=== PATIENT | female | born 1965 | race Asian ===

== ENCOUNTER 2024-12-27 18:08 | Emergency (ER) | payer OTHER ==
--- OUTSIDE RECORDS SUMMARY | 2024-12-27 18:12 | XMS REPORT | Continuity of Care Document ---
Author Name Unknown Address [address] [place] [address]. [address] [place] [address] [facility] [place] Address [address] [facility]. [address] [place] [address] Care Team Providers Care Classified Ad Clerk Name Role Phone Rosanna GIBSON, Bisi Primary Care Physic shalom [phone] Medications Ordered Medication Name Filled Medication Name Start Date Stop Date Current Medication? Ordering Clinician Indication Dosage Frequency Signature (SIG) Comments Components Source losartan 50 mg tablet 2023-10 00:00: 00 Yes 1mg Franc Garay atorvastati n 20 mg tablet 2023-10 00:00: 00 Yes 1mg Franckelsey Garay famotidine 20 mg tablet 2023-10 00:00: 00 Yes 1mg Franc Garay gabapentin 300 mg capsule 2023-10 00:00: 00 Yes 1mg Franc Garay losartan 50 mg tablet 02-20 00:00: 00 Yes 1mg Franckelsey Garay atorvastati n 20 mg tablet 02-20 00:00: 00 Yes 1mg Franc Garay famotidine 20 mg tablet 02-20 00:00: 00 Yes 1mg Franc Maria Eugenia Garay gabapentin 300 mg capsule 02-20 00:00: 00 Yes 1mg Franc Garay TAKE 1 TABLET DAILY. 2022-10 00:00: 00 02-25 00:00 :00 No 15 Franc Garay TAKE 1 TABLET AT BEDTIME. 06-01 00:00: 00 02-25 00:00 :00 No 20 Franckelsey Garay TAKE 1 TABLET DAILY. 2023-0 8-10 00:00: 00 02-25 00:00 :00 No 50 Franc Garay TAKE 1 TABLET DAILY. 8- 00:00: 00 02-25 00:00 :00 No 15 Franc Garay TAKE 1 TABLET DAILY. 8- 00:00: 00 02-25 00:00 :00 No 20 Franc Garay TAKE 1 TABLET DAILY. 427 00:00: 00 02-25 00:00 :00 No 20 Franc Garay TAKE 1 TABLET DAILY. 4- 00:00: 00 02-25 00:00 :00 No 50 Franc Garay TAKE 1 TABLET AT BEDTIME. 4 00:00: 00 02-25 00:00 :00 No 20 Franc Garay TAKE 1 TABLET DAILY. 2021-10 1 00:00: 00 02-25 00:00 :00 No 50 Franc Garay Dose Unknown - 00:00: 00 No Dose Unknown 05-13 00:00: 00 No Dose Unknown 05-13 00:00: 00 Yes Franc Garay Dose Unknown 05-13 00:00: 00 Yes Franc Garay Dose Unknown 05-05 00:00: 00 No Dose Unknown 05-05 00:00: 00 No Dose Unknown 05-05 00:00: 00 No diclofenac potassium 50 mg tablet - 00:00: 00 Yes 1mg Franc Garay pantoprazol e 40 mg tablet,sofya yed release 05-05 00:00: 00 Yes 1mg Franc Garay Dose Unknown -14 00:00: 00 Yes Franc Garay ibuprofen 600 mg tablet - 00:00: 00 No 1mg Dose Unknown - 00:00: 00 No ibuprofen 600 mg tablet 4- 00:00: 00 Yes 1mg Franc Garay Dose Unknown 4- 00:00: 00 Yes Franc Garay atorvastati n 20 mg tablet 0 4-20 00:00: 00 No 1mg diclofenac potassium 50 mg tablet 0 4-20 00:00: 00 No 1mg Remeron 15 mg tablet 0 4-20 00:00: 00 No 1mg pantoprazol e 40 mg tablet,sofya yed release 0 4-20 00:00: 00 No 1mg atorvastati n 20 mg tablet 0 4-20 00:00: 00 Yes 1mg Franc Garay diclofenac potassium 50 mg tablet 0 4-20 00:00: 00 Yes 1mg Franc Garay Remeron 15 mg tablet 0 4-20 00:00: 00 Yes 1mg Franc Garay pantoprazol e 40 mg tablet,sofya yed release 0 4-20 00:00: 00 Yes 1mg Franc Garay ibuprofen 600 mg tablet 0 2-15 00:00: 00 No 1mg ibuprofen 600 mg tablet 0 2-15 00:00: 00 Yes 1mg Franc Garay losartan 25 mg tablet 0 2-08 00:00: 00 No 1mg losartan 25 mg tablet 0 2-08 00:00: 00 Yes 1mg Franc Garay Remeron 15 mg tablet 0 2-02 00:00: 00 No 1mg Remeron 15 mg tablet 0 2-02 00:00: 00 Yes 1mg Franc Garay diclofenac 3 % topical gel 0 1-20 00:00: 00 No 1% diclofenac 3 % topical gel 0 1-20 00:00: 00 Yes 1% Franc Garay pantoprazol e 40 mg tablet,sofya yed release 0 1-18 00:00: 00 No 1mg duloxetine 40 mg capsule,del ayed release 2021-0 1-18 00:00: 00 No 1mg pantoprazol e 40 mg tablet,sofya yed release 2021-0 1-18 00:00: 00 Yes 1mg Franc Garay duloxetine 40 mg capsule,del ayed release 2021-0 1-18 00:00: 00 Yes 1mg Franc Garay losartan 25 mg tablet 2020-0 7-09 00:00: 00 No 1mg atorvastati n 20 mg tablet 04-30 00:00: 00 No 1mg ibuprofen 600 mg tablet 04-30 00:00: 00 No 1mg diclofenac sodium 75 mg tablet,sofya yed release 04-30 00:00: 00 No 1mg Dose Unknown 04-30 00:00: 00 No losartan 25 mg tablet 04-30 00:00: 00 Yes 1mg Franc Garay atorvastati n 20 mg tablet 04-30 00:00: 00 Yes 1mg Franc Garay ibuprofen 600 mg tablet 04-30 00:00: 00 Yes 1mg Franc Garay diclofenac sodium 75 mg tablet,sofya yed release 04-30 00:00: 00 Yes 1mg Franc Garay Dose Unknown 04-30 00:00: 00 Yes Franc Garay ibuprofen 600 mg tablet 04-20 00:00: 00 No 1mg ibuprofen 600 mg tablet 04-20 00:00: 00 Yes 1mg Franc Garay ibuprofen 600 mg tablet 03-18 00:00: 00 No 1mg ibuprofen 600 mg tablet 03-18 00:00: 00 Yes 1mg Franc Garay ibuprofen 600 mg tablet 02-11 00:00: 00 No 1mg ibuprofen 600 mg tablet 02-11 00:00: 00 Yes 1mg Franc Garay atorvastati n 20 mg tablet 01-26 00:00: 00 No 1mg losartan 25 mg tablet 01-26 00:00: 00 No 1mg diclofenac sodium 75 mg tablet,sofya yed release 01-26 00:00: 00 No 1mg famotidine 20 mg tablet 01-26 00:00: 00 No 1mg atorvastati n 20 mg tablet 01-26 00:00: 00 Yes 1mg Franc Garay losartan 25 mg tablet 01-26 00:00: 00 Yes 1mg Franc Garay diclofenac sodium 75 mg tablet,sofya yed release 01-26 00:00: 00 Yes 1mg Franc Garay famotidine 20 mg tablet 0 4-06 00:00: 00 Yes 1mg Franc Garay ibuprofen 600 mg tablet 0 1-20 00:00: 00 No 1mg ibuprofen 600 mg tablet 1-20 00:00: 00 Yes 1mg Franc Garay atorvastati n 20 mg tablet 2019-10 2 00:00: 00 Yes 1mg Franc Garay diclofenac sodium 75 mg tablet,sofya yed release 2019-10 2 00:00: 00 Yes 1mg Franc Garay famotidine 20 mg tablet 2019-10 00:00: 00 Yes 1mg Franc Garay atorvastati n 20 mg tablet 2019-10 00:00: 00 No 1mg diclofenac sodium 75 mg tablet,sofya yed release 2019-10 00:00: 00 No 1mg famotidine 20 mg tablet 2019-10 00:00: 00 No 1mg ibuprofen 600 mg tablet 2019-10 0- 00:00: 00 Yes 1mg Franc Garay ibuprofen 600 mg tablet 2019-10 0 00:00: 00 No 1mg atorvastati n 20 mg tablet 0 817 00:00: 00 Yes 1mg Franc Garay diclofenac sodium 75 mg tablet,sofya yed release 8-17 00:00: 00 Yes 1mg Franc Garay famotidine 20 mg tablet 0 8-17 00:00: 00 Yes 1mg Franc Garay atorvastati n 20 mg tablet 8-17 00:00: 00 No 1mg diclofenac sodium 75 mg tablet,sofya yed release 0 817 00:00: 00 No 1mg famotidine 20 mg tablet 0 8-17 00:00: 00 No 1mg diclofenac sodium 75 mg tablet,sofya yed release 0 7-22 00:00: 00 Yes 1mg Franc Garay diclofenac sodium 75 mg tablet,sofya yed release 0 7-22 00:00: 00 No 1mg atorvastati n 20 mg tablet 0 4-14 00:00: 00 Yes 1mg Franc Garay diclofenac sodium 75 mg tablet,sofya yed release 0 4-14 00:00: 00 Yes 1mg Franc Garay famotidine 20 mg tablet 02-03 00:00: 00 Yes 1mg Franc Garay atorvastati n 20 mg tablet 02-03 00:00: 00 No 1mg diclofenac sodium 75 mg tablet,sofya yed release 02-03 00:00: 00 No 1mg famotidine 20 mg tablet 02-03 00:00: 00 No 1mg atorvastati n 20 mg tablet 01-19 00:00: 00 Yes 1mg Franc Garay tramadol 50 mg tablet 01-19 00:00: 00 Yes 1mg Franc Garay ibuprofen 600 mg tablet 01-19 00:00: 00 Yes 1mg Franc Garay atorvastati n 20 mg tablet 01-19 00:00: 00 No 1mg tramadol 50 mg tablet 01-19 00:00: 00 No 1mg ibuprofen 600 mg tablet 01-19 00:00: 00 No 1mg Immunizations Ordered Immunization Name Filled Immunization Name Date Status Comments Source varicella varicella 2021-02-26 00:00:00 Completed Franc Garay varicella 2021-02-26 00:00:00 Completed Tdap Tdap 2021-02-12 00:00:00 Completed Franc Garay Tdap 2021-02-12 00:00:00 Completed Pfizer COVID-19 Vaccine Pfizer COVID-19 Vaccine 2020-12-16 00:00:00 Completed Franc Maria Eugenia Jarrod Pfizer COVID-19 Vaccine Pfizer COVID-19 Vaccine 2020-10-28 00:00:00 Completed Franc Maria Eugenia Jarrod Vital Signs Vital Name Observation Time Observation Value Comments S ouralbina BP Systolic 2024-08-07 16:58:00 150 mm[Hg] Terrence Garay BP Diastolic 2024-08-07 16:58:00 80 mm[Hg] Otilio Garay Weight Measured 2024-08-07 16:58:00 119.00 pounds Franc Garay Height Measured 2024-08-07 16:58:00 57.20 inches Franc Maria Eugenia Jarrod Body Temperature 2024-08-07 16:58:00 97.30 degrees Franc Garay Heart Rate 2024-08-07 16:58:00 71.00 /min Cari en F Jarrod Respiratory Rate 2024-08-07 16:58:00 Franc F Jarrod BP Systolic 2024-02-21 16:32:00 156 mm[Hg] Step hen F Jarrod BP Diastolic 2024-02-21 16:32:00 87 mm[Hg] Otilio phen F Jarrod Weight Measured 2024-02-21 16:32:00 124.40 pounds Franc F Jarrod Height Measured 2024-02-21 16:32:00 57.20 inches Franc F Jarrod Body Temperature 2024-02-21 16:32:00 97.70 degrees Franc F Jarrod Heart Rate 2024-02-21 16:32:00 68.00 /min Cari en F Jarrod Respiratory Rate 2024-02-21 16:32:00 Franc F Jarrod BP Systolic 2023-10-04 15:34:00 165 mm[Hg] Step hen F Jarrod BP Diastolic 2023-10-04 15:34:00 92 mm[Hg] Otilio phen F Jarrod Weight Measured 2023-10-04 15:34:00 119.60 pounds Franc F Jarrod Height Measured 2023-10-04 15:34:00 57.20 inches Franc F Jarrod Body Temperature 2023-10-04 15:34:00 98.30 degrees Franc F Jarrod Heart Rate 2023-10-04 15:34:00 74.00 /min Cari en F Jarrod Respiratory Rate 2023-10-04 15:34:00 Franc F Jarrod BP Systolic 2023-05-31 15:04:00 150 mm[Hg] Step hen F Jarrod BP Diastolic 2023-05-31 15:04:00 90 mm[Hg] Otilio phen F Jarrod Weight Measured 2023-05-31 15:04:00 119.80 pounds Franc F Jarrod Height Measured 2023-05-31 15:04:00 57.20 inches Franc F Jarrod Body Temperature 2023-05-31 15:04:00 98.20 degrees Franc F Jarrod Heart Rate 2023-05-31 15:04:00 77.00 /min Cari en F Jarrod Respiratory Rate 2023-05-31 15:04:00 Franc F Jarrod BP Systolic 2023-01-30 15:04:00 156 mm[Hg] Step hen F Jarrod BP Diastolic 2023-01-30 15:04:00 84 mm[Hg] Otilio phen F Jarrod Weight Measured 2023-01-30 15:04:00 122.80 pounds Franc F Jarrod Height Measured 2023-01-30 15:04:00 57.20 inches Franc F Jarrod Body Temperature 2023-01-30 15:04:00 98.00 degrees Franc F Jarrod Heart Rate 2023-01-30 15:04:00 81.00 /min Cari en F Jarrod Respiratory Rate 2023-01-30 15:04:00 Franc F Jarrod BP Systolic 2022-08-17 15:06:00 167 mm[Hg] Step hen F Jarrod BP Diastolic 2022-08-17 15:06:00 98 mm[Hg] Otilio phen F Jarrod Weight Measured 2022-08-17 15:06:00 124.40 pounds Franc F Jarrod Height Measured 2022-08-17 15:06:00 57.20 inches Franc F Jarrod Body Temperature 2022-08-17 15:06:00 98.30 degrees Franc F Jarrod Heart Rate 2022-08-17 15:06:00 89.00 /min Cari en F Jarrod Respiratory Rate 2022-08-17 15:06:00 Franc F Jarrod BP Systolic 2022-08-03 18:00:00 173 mm[Hg] Step hen F Jarrod BP Diastolic 2022-08-03 18:00:00 92 mm[Hg] Otilio phen F Jarrod Weight Measured 2022-08-03 18:00:00 124.60 pounds Franc F Jarrod Height Measured 2022-08-03 18:00:00 57.20 inches Franc F Jarrod Body Temperature 2022-08-03 18:00:00 98.70 degrees Franc F Jarrod Heart Rate 2022-08-03 18:00:00 75.00 /min Cari en F Jarrod Respiratory Rate 2022-08-03 18:00:00 Franc F Jarrod BP Systolic 2022-02-09 16:43:00 147 mm[Hg] Step hen F Jarrod BP Diastolic 2022-02-09 16:43:00 82 mm[Hg] Otilio phen F Jarrod Weight Measured 2022-02-09 16:43:00 118.00 pounds Franc F Jarrod Height Measured 2022-02-09 16:43:00 57.20 inches Franc F Jarrod Body Temperature 2022-02-09 16:43:00 97.40 degrees Franc F Jarrod Heart Rate 2022-02-09 16:43:00 76.00 /min Cari en F Jarrod Respiratory Rate 2022-02-09 16:43:00 Franc F Jarrod BP Systolic 2021-11-09 17:39:00 134 mm[Hg] Step hen F Jarrod BP Diastolic 2021-11-09 17:39:00 72 mm[Hg] Otilio phen F Jarrod Weight Measured 2021-11-09 17:39:00 120.00 pounds Franc F Jarrod Height Measured 2021-11-09 17:39:00 57.20 inches Franc F Jarrod Body Temperature 2021-11-09 17:39:00 97.40 degrees Franc F Jarrod Heart Rate 2021-11-09 17:39:00 85.00 /min Cari en F Jarrod Respiratory Rate 2021-11-09 17:39:00 Franc F Jarrod BP Systolic 2021-04-27 15:07:00 128 mm[Hg] Step hen F Jarrod BP Diastolic 2021-04-27 15:07:00 80 mm[Hg] Otilio phen F Jarrod Weight Measured 2021-04-27 15:07:00 118.20 pounds Franc F Jarrod Height Measured 2021-04-27 15:07:00 57.20 inches Franc F Jarrod Body Temperature 2021-04-27 15:07:00 97.50 degrees Franc F Jarrod Heart Rate 2021-04-27 15:07:00 84.00 /min Cari en F Jarrod Respiratory Rate 2021-04-27 15:07:00 Franc F Jarrod BP Systolic 2021-02-17 17:43:00 161 mm[Hg] Step hen F Jarrod BP Diastolic 2021-02-17 17:43:00 99 mm[Hg] Otilio phen F Jarrod Weight Measured 2021-02-17 17:43:00 118.00 pounds Franc F Jarrod Height Measured 2021-02-17 17:43:00 59.00 inches Franc F Jarrod Body Temperature 2021-02-17 17:43:00 98.10 degrees Franc F Jarrod Heart Rate 2021-02-17 17:43:00 89.00 /min Cari en F Jarrod Respiratory Rate 2021-02-17 17:43:00 Franc Garay BP Systolic 2021-02-12 09:09:00 164 mm[Hg] BP Diastolic 2021-02-12 09:09:00 79 mm[Hg] Weight Measured 2021-02-12 09:09:00 117.40 pounds Height Measured 2021-02-12 09:09:00 59.00 inches Body Temperature 2021-02-12 09:09:00 99.00 degrees Heart Rate 2021-02-12 09:09:00 86.00 /min Respiratory Rate 2021-02-12 09:09:00 17.00 /min BP Systolic 2021-02-11 14:30:00 134 mm[Hg] BP Diastolic 2021-02-11 14:30:00 71 mm[Hg] Weight Measured 2021-02-11 14:30:00 118.00 pounds Height Measured 2021-02-11 14:30:00 59.00 inches Body Temperature 2021-02-11 14:30:00 98.00 degrees Heart Rate 2021-02-11 14:30:00 94.00 /min Respiratory Rate 2021-02-11 14:30:00 17.00 /min BP Systolic 2021-01-26 16:52:00 149 mm[Hg] BP Diastolic 2021-01-26 16:52:00 84 mm[Hg] Weight Measured 2021-01-26 16:52:00 117.20 pounds Height Measured 2021-01-26 16:52:00 59.00 inches Body Temperature 2021-01-26 16:52:00 98.40 degrees Heart Rate 2021-01-26 16:52:00 98.00 /min Respiratory Rate 2021-01-26 16:52:00 BP Systolic 2020-09-14 10:03:00 162 mm[Hg] BP Diastolic 2020-09-14 10:03:00 91 mm[Hg] Weight Measured 2020-09-14 10:03:00 116.40 pounds Height Measured 2020-09-14 10:03:00 59.00 inches Body Temperature 2020-09-14 10:03:00 97.60 degrees Heart Rate 2020-09-14 10:03:00 74.00 /min Respiratory Rate 2020-09-14 10:03:00 Plan of Care Planned Activity Planned Date Details Comments Source Goal Plan of Care Note [code = 93644-7] Goal Plan of Care Note [code = 68702-8] Goal Plan of Care Note [code = 34786-9] Goal Plan of Care Note [code = 81174-6] Goal Plan of Care Note [code = 08135-3] Goal Plan of Care Note [code = 04086-5] Goal Plan of Care Note [code = 35063-8] Goal Plan of Care Note [code = 25212-6] Goal Plan of Care Note [code = 79188-5] Goal Plan of Care Note [code = 70040-2] Goal Plan of Care Note [code = 01585-7] Goal Plan of Care Note [code = 85510-0] Goal Plan of Care Note [code = 77051-2] Goal Plan of Care Note [code = 93655-3] Goal Plan of Care Note [code = 55055-5] Goal Plan of Care Note [code = 27369-4] Goal Plan of Care Note [code = 08239-6] Encounters Start Date/Time End Date/Time Encounter Type Admission Type Attending [facility] Facility Care Department Encounter ID Source 2024-08-19 15:58:12 2024-08-19 15:58:12 Outpatient [facility] [id number] Franc Del Cid Jarrod 2024-08-07 16:57:27 2024-08-07 16:57:27 Outpatient [facility] [id number] Franc Del Cid Jarrod 2024-08-07 00:00:00 2024-08-07 00:00:00 Outpatient Visit [facility] [id number] Franc Del Cid Jarrod 2024-02-21 16:21:00 2024-02-21 16:21:00 Outpatient [facility] [id number] Franc Del Cid Jarrod 2024-02-21 00:00:00 2024-02-21 00:00:00 Outpatient Visit [facility] [id number] Franc Del Cid Jarrod 2023-10-07 11:49:45 2023-10-07 11:49:45 Outpatient [facility] [id number] Franc Garay 2023-10-04 15:30:25 2023-10-04 15:30:25 Outpatient [facility] [id number] Franc Garay 2023-05-31 15:03:31 2023-05-31 15:03:31 Outpatient [facility] [id number] Franc Garay 2023-01-31 08:44:56 2023-01-31 08:44:56 Outpatient [facility] [id number] Franc Garay 2023-01-30 15:00:54 2023-01-30 15:00:54 Outpatient [facility]FA[facility] [id number] Franc Garay 2022-08-17 15:00:15 2022-08-17 15:00:15 Outpatient [facility] [id number] Franc Garay 2022-08-03 17:53:05 2022-08-03 17:53:05 Outpatient [facility] [id number] Franc Garay 2022-08-03 00:00:00 2022-08-03 00:00:00 Outpatient Visit [id number] Results Test Description Test Time Test Comments Results Result Co mments Source COMPREHENSIVE METABOLIC [id number] 04:01:26* Test Item Value Reference Range Interpretation Comme nts GLUCOSE (test code = 2217) 113 MG/DL 70-99 H BUN (test code = 2208) 25 MG/DL 8-23 H CREATININE (test code = 2214) 0.66 MG/DL 0.60-1.30 eGFR (2020 CKD-EPI) (test code = 46219) 100 ML/MIN/1.73 >60 CALC BUN/CREAT (test code = 2235) 38 RATIO 6-28 H SODIUM (test code = 2231) 144 MEQ/L 133-146 POTASSIUM (test code = 2228) 4.0 MEQ/L 3.5-5.4 CHLORIDE (test code = 2215) 106 MEQ/L 95-107 CARBON DIOXIDE (test code = 2206) 25 MEQ/L 19-31 CALCIUM (test code = 2208) 10.0 MG/DL 8.5-10.5 PROTEIN, TOTAL (test code = 222) 7.2 G/DL 6.1-8.3 ALBUMIN (test code = 2201) 4.6 G/DL 3.5-5.2 CALC GLOBULIN (test code = 2240) 2.6 G/DL 1.9-3.7 CALC A/G RATIO (test code = 223) 1.8 RATIO 1.0-2.6 BILIRUBIN, TOTAL (test code = 2206) 0.2 MG/DL <=1.2 ALKALINE PHOSPHATASE (test code = 2203) 127 U/L 40-136 AST (test code = 2217) 22 U/L 9-40 ALT (test code = 221) 9 U/L 5-40 UNLESS OTHERWISE INDICATED, ALL TESTING PERFORMED AT [facility] [address] [place] [address] INSPECTOR RAD[employer] AND ELECTRONICS: DOMINIQUE GALDAMEZ M.D. [place] NUMBER [id number] [facility] [place]. [id number] HEMOGLOBIN [id number] 03:24:42* Test Item Value Reference Range Interpretation Comme nts HEMOGLOBIN A1c (test code = 30466) 6.2 % 4.2-5.6 H [employer] GUIDELINES FOR HGB A1C: PREDIABETES/INCREASED RISK . . . . . . . 5.7-6.4% DIAGNOSIS OF DIABETES . . . . . . . . . >=6.5% WITH CONFIRMATION OR APPROPRIATE SYMPTOMS NOTE: ASSAY MAY BE AFFECTED BY HEMOGLOBINOPATHIES (SICKLE CELL ANEMIA, S-C DISEASE, OTHERS) OR ARTIFICIALLY LOWERED BY DECREASED RED CELL SURVIVAL (HEMOLYTIC ANEMIAS, BLOOD LOSS, ETC.). CONSIDER ALTERNATE TESTING OR LABORATORY CONSULTATION. LIPID [id number] 01:50:14* Test Item Value Reference Range Interpretation Comme nts CHOLESTEROL (test code = 2210) 181 MG/DL <200 TRIGLYCERIDES (test code = 223) 175 MG/DL <150 H HDL CHOLESTEROL (test code = 2219) 57 MG/DL >39 CALC LDL CHOL (test code = 2236) 97 MG/DL <100 NOTE: CALCULATED LDL IS BASED ON BRODERICK-SOTO METHOD WHICHINCLUDES ADJUSTABLE TRIGLYCERIDE:VLDL CHOLESTEROL RATIO.THIS FACTOR VARIES BY MEASURED TRIGLYCERIDE AND NON-HDLCHOLESTEROL CONCENTRATIONS WITH INCREASED CALCULATED LDL SEENIN HIGHER TRIGLYCERIDE OR LOWER NON-HDL SPECIMENS. FOR MOREINFORMATION, SEE CLIENT ANNOUNCEMENT AT [email or web address] RISK RATIO LDL/HDL (test code = 2237) 1.70 RATIO <3.22 COMPREHENSIVE METABOLIC [id number] 01:50:14* Test Item Value Reference Range Interpretation Comme nts GLUCOSE (test code = 2216) 117 MG/DL 70-99 H BUN (test code = 2207) 18 MG/DL 6-20 CREATININE (test code = 2213) 0.57 MG/DL 0.60-1.30 L eGFR (2020 CKD-EPI) (test code = 87684) 105 ML/MIN/1.73 >60 CALC BUN/CREAT (test code = 5) 32 RATIO 6-28 H SODIUM (test code = 2230) 143 MEQ/L 133-146 POTASSIUM (test code = 2227) 4.0 MEQ/L 3.5-5.4 CHLORIDE (test code = 2214) 105 MEQ/L 95-107 CARBON DIOXIDE (test code = 2206) 25 MEQ/L 19-31 CALCIUM (test code = 2209) 9.6 MG/DL 8.5-10.5 PROTEIN, TOTAL (test code = 222) 7.1 G/DL 6.1-8.3 ALBUMIN (test code = 2201) 4.5 G/DL 3.5-5.2 CALC GLOBULIN (test code = 2240) 2.6 G/DL 1.9-3.7 CALC A/G RATIO (test code = 2233) 1.7 RATIO 1.0-2.6 BILIRUBIN, TOTAL (test code = 2206) <0.2 MG/DL <=1.2 ALKALINE PHOSPHATASE (test code = 220) 122 U/L 40-136 AST (test code = 2218) 18 U/L 9-40 ALT (test code = 2219) 7 U/L 5-40 UNLESS OTHERWISE INDICATED, ALL TESTING PERFORMED AT [facility] [address] [place] [id number] [employer]: DOMINIQUE GALDAMEZ M.D. CLIA NUMBER [id number] [facility] [place]. [id number] LIPID [id number] 00:00:00* Test Item Value Reference Range Interpretation Comme nts CHOLESTEROL (test code = 2210) 181 MG/DL TRIGLYCERIDES (test code = 2232) 175 MG/DL HDL CHOLESTEROL (test code = 2220) 57 MG/DL CALC LDL CHOL (test code = 2237) 97 MG/DL RISK RATIO LDL/HDL (test cod e = 2238) 1.70 RATIO Franc GarayCOMPREHENSIVE METABOLIC [id number] 00:00:00* Test Item Value Reference Range Interpretation Comme nts GLUCOSE (test code = 2217) 117 MG/DL BUN (test code = 2208) 18 MG/DL CREATININE (test code = 2214) 0.57 MG/DL eGFR (2020 CKD-EPI) (test code = 35921) 105 ML/MIN/1.73 CALC BUN/CREAT (test code = 2235) 32 RATIO SODIUM (test code = 2231) 143 MEQ/L POTASSIUM (test code = 2228) 4.0 MEQ/L CHLORIDE (test code = 2215) 105 MEQ/L CARBON DIOXIDE (test code = 2206) 25 MEQ/L CALCIUM (test code = 2209) 9.6 MG/DL PROTEIN, TOTAL (test code = 2229) 7.1 G/DL ALBUMIN (test code = 2201) 4.5 G/DL CALC GLOBULIN (test code = 2240) 2.6 G/DL CALC A/G RATIO (test code = 2234) 1.7 RATIO BILIRUBIN, TOTAL (test code = 2207) <0.2 MG/DL ALKALINE PHOSPHATASE (test code = 2204) 122 U/L AST (test code = 2218) 18 U/L ALT (test code = 2219) 7 U/L Franc Del Cid AustinLIPID [id number] 00:00:00* Test Item Value Reference Range Interpretation Comme nts CHOLESTEROL (test code = 2210) 181 MG/DL TRIGLYCERIDES (test code = 2232) 175 MG/DL HDL CHOLESTEROL (test code = 2220) 57 MG/DL CALC LDL CHOL (test code = 2237) 97 MG/DL RISK RATIO LDL/HDL (test cod e = 2238) 1.70 RATIO Franc GarayCOMPREHENSIVE METABOLIC [id number] 00:00:00* Test Item Value Reference Range Interpretation Comme nts GLUCOSE (test code = 2217) 117 MG/DL BUN (test code = 2208) 18 MG/DL CREATININE (test code = 2214) 0.57 MG/DL eGFR (2020 CKD-EPI) (test code = 99674) 105 ML/MIN/1.73 CALC BUN/CREAT (test code = 2235) 32 RATIO SODIUM (test code = 2231) 143 MEQ/L POTASSIUM (test code = 2228) 4.0 MEQ/L CHLORIDE (test code = 2215) 105 MEQ/L CARBON DIOXIDE (test code = 2206) 25 MEQ/L CALCIUM (test code = 2209) 9.6 MG/DL PROTEIN, TOTAL (test code = 222) 7.1 G/DL ALBUMIN (test code = 2201) 4.5 G/DL CALC GLOBULIN (test code = 2240) 2.6 G/DL CALC A/G RATIO (test code = 2234) 1.7 RATIO BILIRUBIN, TOTAL (test code = 2206) <0.2 MG/DL ALKALINE PHOSPHATASE (test code = 4) 122 U/L AST (test code = 2217) 18 U/L ALT (test code = 2219) 7 U/L [facility] [place]MO[place] [id number] 02:31:54* Test Item Value Reference Range Interpretation Comme [facility] HEMOGLOBIN A1c (test code = 19387) 6.0 % 4.2-5.6 H [employer] GUIDELINES FOR HGB A1C: PREDIABETES/INCREASED RISK . . . . . . . 5.7-6.4% DIAGNOSIS OF DIABETES . . . . . . . . . >=6.5% WITH CONFIRMATION OR APPROPRIATE SYMPTOMS NOTE: ASSAY MAY BE AFFECTED BY HEMOGLOBINOPATHIES (SICKLE CELL ANEMIA, S-C DISEASE, OTHERS) OR ARTIFICIALLY LOWERED BY DECREASED RED CELL SURVIVAL (HEMOLYTIC ANEMIAS, BLOOD LOSS, ETC.). CONSIDER ALTERNATE TESTING OR LABORATORY CONSULTATION. HEMOGLOBIN [id number] 00:00:00* Test Item Value Reference Range Interpretation Comme [facility] HEMOGLOBIN A1c (test code = 71185) 6.0 % [facility] [place] [id number] 00:00:00* Test Item Value Reference Range Interpretation Comme [facility] HEMOGLOBIN A1c (test code = 24191) 6.0 % Franc GarayCOMPREHENSIVE METABOLIC [id number] 06:15:22* Test Item Value Reference Range Interpretation Comme nts GLUCOSE (test code = 2216) 118 MG/DL 70-99 H BUN (test code = 2207) 14 MG/DL 6-20 CREATININE (test code = 2213) 0.58 MG/DL 0.60-1.30 L eGFR (2020 CKD-EPI) (test code = 13074) 105 ML/MIN/1.73 >60 CALC BUN/CREAT (test code = 2234) 24 RATIO 6-28 SODIUM (test code = 2230) 145 MEQ/L 133-146 POTASSIUM (test code = 2227) 4.2 MEQ/L 3.5-5.4 CHLORIDE (test code = 2214) 106 MEQ/L 95-107 CARBON DIOXIDE (test code = 2205) 27 MEQ/L 19-31 CALCIUM (test code = 2208) 10.1 MG/DL 8.5-10.5 PROTEIN, TOTAL (test code = 2228) 7.2 G/DL 6.1-8.3 ALBUMIN (test code = 2200) 4.7 G/DL 3.5-5.2 CALC GLOBULIN (test code = 2239) 2.5 G/DL 1.9-3.7 CALC A/G RATIO (test code = 2233) 1.9 RATIO 1.0-2.6 BILIRUBIN, TOTAL (test code = 2206) 0.4 MG/DL See_Comment [Automated me ssage] The system which generated this result transmitted reference range: <=1.2. The reference range was not used to interpret this result as normal/abnormal. ALKALINE PHOSPHATASE (test code = 2203) 139 U/L 40-136 H AST (test code = 2217) 22 U/L 9-40 ALT (test code = 221) 10 U/L 5-40 LIPID [id number] 06:15:22* Test Item Value Reference Range Interpretation Comme nts CHOLESTEROL (test code = 0) 217 MG/DL <200 H TRIGLYCERIDES (test code = 2232) 124 MG/DL <150 HDL CHOLESTEROL (test code = 2220) 63 MG/DL >39 CALC LDL CHOL (test code = 2236) 131 MG/DL <100 H NOTE: CALCULATED LDL IS BASED ON BRODERICK-SOTO METHOD WHICHINCLUDES ADJUSTABLE TRIGLYCERIDE:VLDL CHOLESTEROL RATIO.THIS FACTOR VARIES BY MEASURED TRIGLYCERIDE AND NON-HDLCHOLESTEROL CONCENTRATIONS WITH INCREASED CALCULATED LDL SEENIN HIGHER TRIGLYCERIDE OR LOWER NON-HDL SPECIMENS. FOR MOREINFORMATION, SEE CLIENT ANNOUNCEMENT AT [email or web address] RATIO LDL/HDL (test code = 2238) 2.08 RATIO <3.22 [facility] has i mportant pathology staff changes effective 12/21/2022. New pathology staff will provide uninterrupted, excellent patient care and clinical consultation. See URL: [email or web address]. UNLESS OTHERWISE INDICATED, ALL TESTING PERFORMED AT [facility] [address] [place] [address] INSPECTOR RADAR AND ELECTRONICS: DOMINIQUE GALDAMEZ M.D. [facility] NUMBER [id number] [facility] [place]. [id number] HEMOGLOBIN [id number] 04:11:53* Test Item Value Reference Range Interpretation Comme [facility] HEMOGLOBIN A1c (test code = 99083) 6.2 % 4.2-5.6 H [employer] GUIDELINES FOR HGB A1C: PREDIABETES/INCREASED RISK . . . . . . . 5.7-6.4% DIAGNOSIS OF DIABETES . . . . . . . . . >=6.5% WITH CONFIRMATION OR APPROPRIATE SYMPTOMS NOTE: ASSAY MAY BE AFFECTED BY HEMOGLOBINOPATHIES (SICKLE CELL ANEMIA, S-C DISEASE, OTHERS) OR ARTIFICIALLY LOWERED BY DECREASED RED CELL SURVIVAL (HEMOLYTIC ANEMIAS, BLOOD LOSS, ETC.). CONSIDER ALTERNATE TESTING OR LABORATORY CONSULTATION. HEMOGLOBIN [id number] 00:00:00* Test Item Value Reference Range Interpretation Comme [facility] HEMOGLOBIN A1c (test code = 36048) 6.2 % Franc GarayCOMPREHENSIVE METABOLIC [id number] 00:00:00* Test Item Value Reference Range Interpretation Comme nts GLUCOSE (test code = 2217) 118 MG/DL BUN (test code = 2208) 14 MG/DL CREATININE (test code = 2214) 0.58 MG/DL eGFR (2020 CKD-EPI) (test code = 06510) 105 ML/MIN/1.73 CALC BUN/CREAT (test code = 2235) 24 RATIO SODIUM (test code = 2231) 145 MEQ/L POTASSIUM (test code = 2228) 4.2 MEQ/L CHLORIDE (test code = 2215) 106 MEQ/L CARBON DIOXIDE (test code = 2206) 27 MEQ/L CALCIUM (test code = 2209) 10.1 MG/DL PROTEIN, TOTAL (test code = 2229) 7.2 G/DL ALBUMIN (test code = 2201) 4.7 G/DL CALC GLOBULIN (test code = 2240) 2.5 G/DL CALC A/G RATIO (test code = 2234) 1.9 RATIO BILIRUBIN, TOTAL (test code = 2207) 0.4 MG/DL ALKALINE PHOSPHATASE (test code = 2204) 139 U/L AST (test code = 2218) 22 U/L ALT (test code = 2219) 10 U/L Franc GarayLIPID [id number] 00:00:00* Test Item Value Reference Range Interpretation Comme nts CHOLESTEROL (test code = 2210) 217 MG/DL TRIGLYCERIDES (test code = 2232) 124 MG/DL HDL CHOLESTEROL (test code = 2220) 63 MG/DL CALC LDL CHOL (test code = 2237) 131 MG/DL RISK RATIO LDL/HDL (test cod e = 2238) 2.08 RATIO Franc GarayHEMOGLOBIN [id number] 00:00:00* Test Item Value Reference Range Interpretation Comme nts HEMOGLOBIN A1c (test code = 72881) 6.2 % Franc GarayCOMPREHENSIVE METABOLIC [id number] 00:00:00* Test Item Value Reference Range Interpretation Comme nts GLUCOSE (test code = 2217) 118 MG/DL BUN (test code = 2208) 14 MG/DL CREATININE (test code = 2214) 0.58 MG/DL eGFR (2020 CKD-EPI) (test code = 99280) 105 ML/MIN/1.73 CALC BUN/CREAT (test code = 2235) 24 RATIO SODIUM (test code = 2231) 145 MEQ/L POTASSIUM (test code = 2228) 4.2 MEQ/L CHLORIDE (test code = 2215) 106 MEQ/L CARBON DIOXIDE (test code = 2206) 27 MEQ/L CALCIUM (test code = 2209) 10.1 MG/DL PROTEIN, TOTAL (test code = 2229) 7.2 G/DL ALBUMIN (test code = 2201) 4.7 G/DL CALC GLOBULIN (test code = 2240) 2.5 G/DL CALC A/G RATIO (test code = 2234) 1.9 RATIO BILIRUBIN, TOTAL (test code = 2207) 0.4 MG/DL ALKALINE PHOSPHATASE (test code = 2204) 139 U/L AST (test code = 2218) 22 U/L ALT (test code = 2219) 10 U/L Franc GarayLIPID [id number] 00:00:00* Test Item Value Reference Range Interpretation Comme nts CHOLESTEROL (test code = 2210) 217 MG/DL TRIGLYCERIDES (test code = 2232) 124 MG/DL HDL CHOLESTEROL (test code = 2220) 63 MG/DL CALC LDL CHOL (test code = 2237) 131 MG/DL RISK RATIO LDL/HDL (test cod e = 2238) 2.08 RATIO Franc Del Cid AustinOCCULT BLD,FECAL,IMMUNOASSAY [id number] 22:09:51* Test Item Value Reference Range Interpretation Comme nts OCCULT BLD, FECAL (test code = 02684) NEGATIVE NEGATIVE UNLESS OTHER BARTH INDICATED, ALL TESTING PERFORMED [facility] [address] [place] [address] INSPECTOR RADAR AND ELECTRONICS: EDMAR BRADY M.D. CLIA NUMBER [id number] [facility] [place]. [id number] OCCULT BLD,FECAL,IMMUNOASSAY [id number] 00:00:00* Test Item Value Reference Range Interpretation Comme nts OCCULT BLD, FECAL (test code = 47717) NEGATIVE OCCULT BLD,FECAL,IMMUNOASSAY [id number] 00:00:00* Test Item Value Reference Range Interpretation Comme nts OCCULT BLD, FECAL (test code = 41047) NEGATIVE Franc Del Cid AustinOCCULT BLD,FECAL,IMMUNOASSAY [id number] 00:00:00* Test Item Value Reference Range Interpretation Comme nts OCCULT BLD, FECAL (test code = 99125) NEGATIVE Franc Del Cid AustinMUMPS IgG AND [id number] 00:00:00* Test Item Value Reference Range Interpretation Comme nts MUMPS VIRUS IgG (test code = 17649) >300.0 AU/mL MUMPS VIRUS IgM (test code = 4587) 1.27 IV MUMPS IgG AND [id number] 00:00:00* Test Item Value Reference Range Interpretation Comme nts MUMPS VIRUS IgG (test code = 75113) >300.0 AU/mL MUMPS VIRUS IgM (test code = 4587) 1.27 IV Franc GarayMUMPS IgG AND [id number] 00:00:00* Test Item Value Reference Range Interpretation Comme nts MUMPS VIRUS IgG (test code = 42068) >300.0 AU/mL MUMPS VIRUS IgM (test code = 4587) 1.27 IV Franc Del Cid AustinRUBEOLA IgG [id number] 00:00:00* Test Item Value Reference Range Interpretation Comme nts RUBEOLA IgG ANTIBODY (test c ode = 71028) >260.0 AU/ML RUBELLA ANTIBODY [id number] 00:00:00* Test Item Value Reference Range Interpretation Comme nts RUBELLA ANTIBODY SCREEN (diony t code = 4600) >500 IU/ML RUBELLA IgG INTERP (test cod e = 64096) REACTIVE RUBEOLA IgG [id number] 00:00:00* Test Item Value Reference Range Interpretation Comme nts RUBEOLA IgG ANTIBODY (test c ode = 64270) >260.0 AU/ML Franc Del Cid AustinRUBELLA ANTIBODY [id number] 00:00:00* Test Item Value Reference Range Interpretation Comme nts RUBELLA ANTIBODY SCREEN (diony t code = 4600) >500 IU/ML RUBELLA IgG INTERP (test cod e = 56486) REACTIVE Franc Del Cid AustinRUBEOLA IgG [id number] 00:00:00* Test Item Value Reference Range Interpretation Comme nts RUBEOLA IgG ANTIBODY (test c ode = 68231) >260.0 AU/ML Franc Del Cid AustinRUBELLA ANTIBODY [id number] 00:00:00* Test Item Value Reference Range Interpretation Comme nts RUBELLA ANTIBODY SCREEN (diony t code = 4600) >500 IU/ML RUBELLA IgG INTERP (test cod e = 40320) REACTIVE Franc Del Cid AustinVARICELLA ZOSTER [id number] 00:00:00* Test Item Value Reference Range Interpretation Comme nts VARICELLA ZOSTER IgG (test c ode = 02869) 60 INDEX VARICELLA ZOSTER [id number] 00:00:00* Test Item Value Reference Range Interpretation Comme nts VARICELLA ZOSTER IgG (test c ode = 92671) 60 INDEX Franc F AustinVARICELLA ZOSTER [id number] 00:00:00* Test Item Value Reference Range Interpretation Comme nts VARICELLA ZOSTER IgG (test c ode = 19504) 60 INDEX Franc GarayHEPATITIS B SURFACE [id number] 00:00:00* Test Item Value Reference Range Interpretation Comme nts HEPATITIS B SURFACE AB (test code = 2737) REACTIVE HEPATITIS B SURFACE [id number] 00:00:00* Test Item Value Reference Range Interpretation Comme nts HEPATITIS B SURFACE AB (test code = 2737) REACTIVE Franc GarayHEPATITIS B SURFACE [id number] 00:00:00* Test Item Value Reference Range Interpretation Comme nts HEPATITIS B SURFACE AB (test code = 2737) REACTIVE Franc GaraySARS-CoV-2 (COVID-19) by RT-PCR (HIGH RISK)2020-07-17 00:00:00* Test Item Value Reference Range Interpretation Comme nts SARS-CoV-2 INTERPRETATION (test code = 79221) Negative SOURCE (test code = 45305) NASOPHARYNGEA L_SWAB _IN_VTM__UTM SARS-CoV-2 (COVID-19) by RT-PCR (HIGH RISK)2020-07-17 00:00:00* Test Item Value Reference Range Interpretation Comme nts SARS-CoV-2 INTERPRETATION (test code = 17802) Negative SOURCE (test code = 45463) NASOPHARYNGEA L_SWAB _IN_VTM__UTM Franc GaraySARS-CoV-2 (COVID-19) by RT-PCR (HIGH RISK)2020-07-17 00:00:00* Test Item Value Reference Range Interpretation Comme nts SARS-CoV-2 INTERPRETATION (test code = 44057) Negative SOURCE (test code = 52280) NASOPHARYNGEA L_SWAB _IN_VTM__UTM Franc Del Cid Jarrod Notes Date/Time Note Provider Source Franc [facility]2024-05-01 00:00:00 [facility]
--- NOTE | 2024-12-27 19:00 | EDPHYS ---
Physician Documentation [facility] Name: Dennise Aguiar Age: 59 yrs Sex: Female : 1965 Arrival Date: 12/27/2024 Time: 18:08 Bed IW3 Private MD: ED Physician Ronda Ramsey HPI: 12/27 18:55 This 59 yrs old Female presents to ER via Ambulatory with complaints of gb1 Dizziness, Neck pain. 18:55 59-year-old female was watching a [employer] for [email or web address] video trying to massage her gb1 muscles in her neck and upper chest area and massage the right side of her neck and all of a sudden felt dizzy and lightheaded. She also felt like the room was spinning. She has a history of hyperlipidemia and hypertension. She denies any unilateral weakness or difficulty with speech or facial numbness. She denies any loss of consciousness. She denies any chest pain or shortness of breath.. Historical: - Allergies: 18:34 No Known Allergies; ap3 - PMHx: 18:34 Hypercholesterolemia; Hypertensive disorder; ap3 - Immunization history:: Client reports receiving the 2nd dose of the Covid vaccine. - Infectious Disease History:: Denies. - Social history:: Smoking status: Patient denies any tobacco usage or history of. Exam: 18:55 Constitutional: This is a well developed, well nourished patient who is awake, alert, gb1 and in no acute distress. Head/Face: Normocephalic, atraumatic. Eyes: Pupils equal round and reactive to light, extra-ocular motions intact. Lids and lashes normal. Conjunctiva and sclera are non-icteric and not injected. Cornea within normal limits. Periorbital areas with no swelling, redness, or edema. ENT: Nares patent. No nasal discharge, no septal abnormalities noted. Tympanic membranes are normal and external auditory canals are clear. Oropharynx with no redness, swelling, or masses, exudates, or evidence of obstruction, uvula midline. Mucous membranes moist. Neck: Trachea midline, no thyromegaly or masses palpated, and no cervical lymphadenopathy. Supple, full range of motion without nuchal rigidity, or vertebral point tenderness. No Meningismus. Chest/axilla: Normal chest wall appearance and motion. Nontender with no deformity. No lesions are appreciated. Cardiovascular: Regular rate and rhythm with a normal S1 and S2. No gallops, murmurs, or rubs. Normal PMI, no JVD. No pulse deficits. Respiratory: Lungs have equal breath sounds bilaterally, clear to auscultation and percussion. No rales, rhonchi or wheezes noted. No increased work of breathing, no retractions or nasal flaring. Abdomen/GI: Soft, non-tender, with normal bowel sounds. No distension or tympany. No guarding or rebound. No evidence of tenderness throughout. Back: No spinal tenderness. No costovertebral tenderness. Full range of motion. Skin: Warm, dry with normal turgor. Normal color with no rashes, no lesions, and no evidence of cellulitis. MS/ Extremity: Pulses equal, no cyanosis. Neurovascular intact. Full, normal range of motion. Vital Signs: 18:32 BP 153 / 78; Pulse 74; Resp 18; Temp 98.7; Pulse Ox 100% ; Weight 53.52 kg; Height 4 ap3 ft. 11 in. ; Pain 0/10; 19:59 BP 147 / 70; Pulse 72; Resp 15; Pulse Ox 98% ; cm10 18:32 Body Mass Index 23.83 (53.52 kg, 149.86 cm) ap3 18:32 Pain Scale: Adult ap3 MDM: 18:54 Medical Screening Exam initiated gb1 18:55 Data reviewed: vital signs, nurses notes, EKG. ED course: 59-year-old female with gb1 adverse reaction to performing a carotid massage on the right. I believe these are likely minor complications of local discomfort or pain which has resulted in lightheadedness and near syncope. She has no signs of any stroke or TIA. She did not have a syncopal event and her blood pressure is stable I will obtain an EKG to ensure that she has not had any arrhythmia as a sequelae. She does not have a carotid bruit on exam and shows no sign of any kind of serious cardiac arrhythmia to include ventricle tachycardia or ventricular fib. I doubt carotid artery dissection. Patient is actually not having any neck pain. The EKG completed at 1856 shows normal sinus rhythm with a rate of 73 bpm. Normal intervals and axis. I did warn the patient about the dangers and signs and symptoms of carotid massage that can be adverse and have renal consequences regarding neurological and cardiovascular health. I will discharge her home with explicit return precautions to which he is compliant with.. 12/27 18:52 Order name: EKG - Nurse/Tech; Complete Time: 18:57 gb1 Administered Medications: 19:59 Drug: Meclizine PO 25 mg PO once Route: PO; cm10 19:59 Follow up: Response: Medication administered at discharge. cm10 Disposition Summary: 12/27/24 19:00 Discharge Ordered Notes: Location: Home gb1 Problem: new gb1 Symptoms: have improved gb1 Condition: Stable gb1 Diagnosis - Dizziness and giddiness gb1 Followup: gb1 - With: Private Physician - When: - Reason: If symptoms return Discharge Instructions: - Discharge Summary Sheet gb1 - Vertigo, [id number] gb1 Forms: - Work release form cm10 - Medication Reconciliation Form gb1 - Antibiotic Education gb1 - Prescription Opioid Use gb1 - Patient Portal Instructions gb1 - Leadership Thank You Letter gb1 Prescriptions: - Meclizine 25 mg Oral tablet - take 1 tablet ORAL route every 8 hours As needed; 12 tablet; Refills: 0, gb1 Product Selection Permitted Signatures: Joana Griffiths RN RN ap3 Shellie Weems RN RN cm10 Ronda Ramsey MD MD gb1
--- NOTE | 2024-12-27 19:00 | ER ---
Nurse's Notes [facility] Name: Dennise Aguiar Age: 59 yrs Sex: Female : 1965 Arrival Date: 12/27/2024 Time: 18:08 Bed IW3 Private MD: Diagnosis: Dizziness and giddiness Presentation: 12/27 18:32 Chief complaint: Patient states: she watched a neck massage on her phone and tried it. ap3 patient reports she was laying in her bed, then rubbed her right ear, then the right side of her neck and she started feeling dizzy. patient states if she lays on her right side, she is not dizzy. patient reports she did this at 1530 this afternoon. Coronavirus screen: At this time, the client does not indicate any symptoms associated with coronavirus-19. Ebola Screen: No symptoms or risks identified at this time. Initial Sepsis Screen: Does the patient meet any 2 criteria? No. Patient's initial sepsis screen is negative. Does the patient have a suspected source of infection? No. Patient's initial sepsis screen is negative. Risk Assessment: Do you want to hurt yourself or someone else? Patient reports no desire to harm self or others. Onset of symptoms was December 27, 2024 at 15:30. 18:32 Method Of Arrival: Ambulatory ap3 18:44 Acuity: KAM 2 ap3 Triage Assessment: 18:35 General: Appears uncomfortable, Behavior is calm, cooperative, appropriate for age. ap3 Pain: Complains of pain in neck. Neuro: Reports dizziness. Cardiovascular: Patient's skin is warm and dry. Respiratory: Airway is patent Respiratory effort is even, unlabored, Respiratory pattern is regular, symmetrical. Historical: - Allergies: 18:34 No Known Allergies; ap3 - PMHx: 18:34 Hypercholesterolemia; Hypertensive disorder; ap3 - Immunization history:: Client reports receiving the 2nd dose of the Covid vaccine. - Infectious Disease History:: Denies. - Social history:: Smoking status: Patient denies any tobacco usage or history of. Screenin:35 [facility] ED Fall Risk Assessment (Adult) History of falling in the last 3 months, ap3 including since admission No falls in past 3 months (0 pts) Confusion or Disorientation No (0 pts) Intoxicated or Sedated No (0 pts) Impaired Gait No (0 pts) Mobility Assist Device Used No (0 pt) Altered Elimination No (0 pt) Score/Fall Risk Level 0 - 2 = Low Risk Oriented to surroundings, Maintained a safe environment, Educated pt \T\ family on fall prevention, incl call for assistance when getting out of bed, Assessed \T\ reinforced patient's understanding of fall precautions, Hourly rounding (assess needs \T\ fall precautionary measures) done, Used ambulatory aids as needed (educated on \T\ assisted with). Abuse screen: Denies threats or abuse. Nutritional screening: No deficits noted. Tuberculosis screening: No symptoms or risk factors identified. Assessment: 18:46 General: ED medical provider in to triage to see patient.. ap3 Vital Signs: 18:32 BP 153 / 78; Pulse 74; Resp 18; Temp 98.7; Pulse Ox 100% ; Weight 53.52 kg; Height 4 ap3 ft. 11 in. ; Pain 0/10; 19:59 BP 147 / 70; Pulse 72; Resp 15; Pulse Ox 98% ; cm10 18:32 Body Mass Index 23.83 (53.52 kg, 149.86 cm) ap3 18:32 Pain Scale: Adult ap3 ED Course: 18:10 Patient arrived in ED. mr 18:36 Triage completed. ap3 18:36 Arm band placed on right wrist. ap3 18:52 Ronda Ramsey MD is Attending Physician. gb1 18:57 EKG done, by ED staff, reviewed by Ronda Ramsey MD. ap3 19:59 Patient has correct armband on for positive identification. Provided Education on: cm10 Follow-up instructions. 19:59 No provider procedures requiring assistance completed. Patient did not have IV access cm10 during this emergency room visit. Administered Medications: 19:59 Drug: Meclizine PO 25 mg PO once Route: PO; cm10 19:59 Follow up: Response: Medication administered at discharge. cm10 Medication: 19:59 VIS not applicable for this client. cm10 Outcome: 19:00 Discharge ordered by . gb1 19:59 Discharged to home ambulatory, with family, cm10 19:59 Condition: good 19:59 Discharge instructions given to patient, Instructed on discharge instructions, follow up and referral plans. medication usage, Demonstrated understanding of instructions, follow-up care, medications, Prescriptions given X 1, 20:00 Patient left the ED. cm10 Signatures: Rachel Andrade, Reg Reg mr Joana Griffiths RN RN ap3 Shellie Weems RN RN cm10 Ronda Ramsey MD MD gb1 Corrections: (The following items were deleted from the chart) 18:44 18:36 Acuity: KAM 3 ap3 ap3
[2024-12-27] MEDS ORDERED: MECLIZINE HCL 12.5 MG TAB ONE (19:27)
[2024-12-27 20:07] VITALS: TEMP 98.7
[2024-12-27 20:08] VITALS: BP 147/70; O2SAT 98
--- NOTE | 2024-12-31 11:14 | EKG ---
Test Date: 2024-12-27 Test Time: 18:56:21 [employer] Paral[employer]: ALP MEASUREMENT RESULTS: Intervals: Rate: 73 [place]: 146 QRSD: 76 QT: 390 QTc: 429 [place]: P: 63 [place]: 146 QRS: 63 T: 65 INTERPRETIVE STATEMENTS: Normal sinus rhythm Normal ECG No previous ECG available for comparison Electronically Signed On 12-31-24 11:03:52 CDT by Channing Rabago
== END 2024-12-27 20:00 | disposition home or self-care (01) ==
LOC: ER 18:08
DX: R42 Dizziness and giddiness (principal); M54.2 Cervicalgia
CPT/HCPCS: 99283; J8597; 93005